=== PATIENT | female | born 1995 | race Caucasian/White ===

== ENCOUNTER 2016-10-07 21:05 | Emergency (ER) | payer OTHER ==
--- NOTE | 2016-10-07 22:51 | RAD ---
INDICATION: Lump on proximal anteromedial tibia. TECHNIQUE: 2 views of the right lower leg were obtained. FINDINGS: The bones are in normal alignment. No significant focal osseous abnormality or fracture is seen. No soft tissue calcifications are seen. IMPRESSION: Negative exam.
[2016-10-07] MEDS ORDERED: Ketorolac INJ* 60 MG/2 ML VIAL IM ONE (23:06)
--- NOTE | 2016-10-08 00:33 | UC ---
Lower Extremity/Ankle HPI - HPI Summary HPI Summary: OVER LAST WEEK HAS noticed very small bump on front of right leg. tender to touch. no redenss no fever. no trauma. NO DISCOLORATION TO AREA. NO INSECT BITES. NO OTHER LESIONS ANYWHERE ELSE ON BODY. - History of Current Complaint Chief Complaint: EDExtremityLower Stated Complaint: RIGHT LEG PAIN//POSS INFECTION Time Seen by Provider: 10/07/16 21:28 Hx Obtained From: Patient Onset/Duration: Gradual Onset, Lasting Days, Still Present Severity Initially: Mild Severity Currently: Mild Pain Intensity: 9 Aggravating Factor(s): Standing, Ambulation Alleviating Factor(s): Nothing - Risk Factors Gout Risk Factors: Negative DVT Risk Factors: Negative Septic Arthritis Risk Factor: Negative - Allergies/Home Medications Allergies/Adverse Reactions: Allergies Allergy/AdvReac Type Severity Reaction Status Date / Time Amoxicillin Allergy n/v Verified 03/14/16 23:07 Erythromycin Allergy n/v Verified 03/14/16 23:07 Latex Allergy Rash Verified 03/14/16 23:07 Penicillins Allergy n/v Verified 03/14/16 23:07 Sulfa Antibiotics Allergy n/v Verified 03/14/16 23:07 PMH/Surg Hx/FS Hx/Imm Hx Previously Healthy: Yes Respiratory History Of: Reports: Asthma Psychological History Of: Reports: Depression, Bipolar Disorder - Family History Known Family History: Negative: Cardiac Disease - Social History Occupation: Unemployed Lives: With Family Alcohol Use: None Alcohol Amount: none that pt reports Substance Use Type: None Substance Use Comment - Amount & Last Used: none that pt reports, pt tox negative for substances Smoking Status (MU): Never Smoked Tobacco Have You Smoked in the Last Year: No - Immunization History Most Recent Influenza Vaccination: unk Most Recent Tetanus Shot: unk Most Recent Pneumonia Vaccination: n/a Review of Systems Constitutional: Negative Skin: Other - SMALL 0.3 X 0.3 CM PALPABLE LESION UNDER SKIN OF ANTERIOR TIBIA. Eyes: Negative ENT: Negative Respiratory: Negative Cardiovascular: Negative Gastrointestinal: Negative Genitourinary: Negative Motor: Negative Neurovascular: Negative Musculoskeletal: Arthralgia - ANTERIOR LEG AT SITE OF BUMP Neurological: Negative Psychological: Negative All Other Systems Reviewed And Are Negative: Yes Physical Exam Triage Information Reviewed: Yes Appearance: Well-Appearing, No Pain Distress - PATIENT IN NO PAIN DISTRESS, ACTIVELY TEXTING AND SMILING; NO EXQUISTE TENDERNESS WHEN PALPATING LESION., Well-Nourished Vital Signs: Initial Vital Signs Temp 99.0 F 10/07/16 21:15 Pulse 86 10/07/16 21:15 Resp 16 10/07/16 21:15 BP 121/69 10/07/16 21:15 Pulse Ox 100 10/07/16 21:15 Vital Signs Reviewed: Yes Eye Exam: Normal Eyes: Positive: Conjunctiva Clear ENT Exam: Normal ENT: Positive: Normal ENT inspection, Hearing grossly normal, Pharynx normal, TMs normal Dental Exam: Normal Neck exam: Normal Neck: Positive: Supple, Nontender, No Lymphadenopathy Respiratory Exam: Normal Respiratory: Positive: Chest non-tender, Lungs clear, Normal breath sounds Cardiovascular Exam: Normal Cardiovascular: Positive: RRR, No Murmur, Pulses Normal Abdominal Exam: Normal Abdomen Description: Positive: Nontender, No Organomegaly Musculoskeletal Exam: Normal Musculoskeletal: Positive: Strength Intact, ROM Intact Neurological Exam: Normal Psychological Exam: Normal Psychological: Positive: Normal Response To Family Skin: Positive: Other - SMALL RAISES 0.3 CM X 0.3 CM PAPULAR LESION ON ANTERIOR RIGHT LEG. NO DISCOLORATION BORDERS PALPABLY DEFINED Diagnostics - Laboratory Diagnostic Studies Completed/Ordered: XRAY RIGHT LOWER LEG : NO FRACTURES OR FOREIGN BODIES VISUALIZED Lower Extremity Course/Dx - Differential Dx/Diagnosis Provider Diagnoses: RIGHT LEG ANTERIOR TIBIA SOFT TISSUE CYST. Discharge - Discharge Plan Condition: Stable Disposition: HOME Patient Education Materials: Cyst (ED) Referrals: [facility] [Outside] Javier Manriquez MD [Primary Care Provider] - Additional Instructions: TAKE IBUPROFEN FOR DISCOMFORT AND USE WARM COMPRESSES. Images Front/Back of Body, Lg (Nelson): 1 - 0.3 CM X 0.3 CM LESION HERE4 ON ANTERIOR TIBIA
[2016-10-08 01:02] VITALS: BP 93/70
== END 2016-10-08 01:00 | disposition home or self-care (01) ==
LOC: ED 21:05
DX: L72.8 Other follicular cysts of the skin and subcutaneous tissue (principal); M79.604 Pain in right leg
CPT/HCPCS: 96372; 99282; J1885

== ENCOUNTER 2018-04-23 10:34 | Emergency (ER) | payer SELFPAY ==
[2018-04-23] MEDS ORDERED: Clindamycin CAP* 150 MG PO ONE (11:25)
[2018-04-23] MEDS ORDERED: predniSONE TAB* 20 MG PO ONE (11:25)
[2018-04-23] MEDS ORDERED: diPHENhydraMINE PO* 50 MG PO ONE (11:25)
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
[2018-04-23 12:43] VITALS: BP 114/78
== END 2018-04-23 12:42 | disposition home or self-care (01) ==
LOC: ED 10:34
DX: L27.0 Generalized skin eruption due to drugs and medicaments taken internally (principal); T36.8X5A Adverse effect of other systemic antibiotics, initial encounter; Y92.9 Unspecified place or not applicable; Z88.3 Allergy status to other anti-infective agents; Z88.2 Allergy status to sulfonamides; Z88.0 Allergy status to penicillin
CPT/HCPCS: 99282; A9270-GY; J7512

== ENCOUNTER 2018-06-04 10:26 | Emergency (ER) | payer SELFPAY ==
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
[2018-06-04] MEDS ORDERED: Naproxen TAB* 250 MG PO ONE (11:30)
--- NOTE | 2018-06-04 13:09 | RAD ---
INDICATION: Right wrist injury. TECHNIQUE: 4 views of the right wrist were obtained. FINDINGS: The bones are in normal alignment. No fracture is seen. Joint spaces appear maintained. IMPRESSION: NO EVIDENCE FOR FRACTURE. IF THE PATIENT'S SYMPTOMS PERSIST RECOMMEND FOLLOW-UP IMAGING.
--- NOTE | 2018-06-04 13:10 | RAD ---
INDICATION: Left hand injury. TECHNIQUE: 4 views of the left hand were obtained. FINDINGS: The bones are in normal alignment. No fracture is seen. Joint spaces appear maintained. IMPRESSION: NO EVIDENCE FOR FRACTURE.
[2018-06-04 14:35] VITALS: BP 119/58
== END 2018-06-04 14:33 | disposition home or self-care (01) ==
LOC: ED 10:26
DX: S63.501A Unspecified sprain of right wrist, initial encounter (principal); S63.92XA Sprain of unspecified part of left wrist and hand, initial encounter; M25.531 Pain in right wrist; W19.XXXA Unspecified fall, initial encounter; Y92.9 Unspecified place or not applicable; Z88.0 Allergy status to penicillin
CPT/HCPCS: 99281; A9270-GY

== ENCOUNTER → 2018-07-16 00:50 | Emergency (ER) | payer OTHER ==
[~2018-07-16 00:50] MED LIST: Ibuprofen TAB* 600 MG PO ONE
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
[2018-07-16 02:42] VITALS: BP 0/0
== END | disposition home or self-care (01) ==
LOC: ED 00:50
DX: S00.83XA Contusion of other part of head, initial encounter (principal); S09.90XA Unspecified injury of head, initial encounter; Y04.8XXA Assault by other bodily force, initial encounter; Y92.9 Unspecified place or not applicable; F32.9 Major depressive disorder, single episode, unspecified
CPT/HCPCS: 70450; 70486; 99282; A9270-GY

== ENCOUNTER 2018-08-10 00:48 | Inpatient (IN) | payer OTHER ==
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
[2018-08-10] MEDS ORDERED: LORazepam INJ* 2 MG/ML 1 ML VIAL IM ONE (00:53)
[2018-08-10] MEDS ORDERED: Haloperidol INJ IV/IM* 5 MG/ML AMP IM ONE (00:53)
[2018-08-10] MEDS ORDERED: LORazepam INJ* 2 MG/ML 1 ML VIAL ONE (00:55)
[2018-08-10] MEDS ORDERED: Haloperidol INJ IV/IM* 5 MG/ML AMP ONE (00:55)
[2018-08-10 03:12] LABS: ABS Basophils 0 10^3/ul (0-0.2); ABS Eosinophils 0 10^3/ul (0-0.6); ABS Lymphocytes 1.1 10^3/ul (1.0-4.8); ABS Monocytes 0.7 10^3/ul (0-0.8); ABS Nucleated RBC 0 10^3/ul; Eosinophil % 0.3 % (0-6); Hematocrit 43 % (35-47); Hemoglobin 14.2 g/dl (12.0-16.0); Lymphocyte % 14.3 % (25-47); Mean Corpuscular HGB Conc 33 g/dl (31-36); Mean Corpuscular Hemoglobin 29 pg (27-31); Mean Corpuscular Volume 86 fL (80-97); Nucleated Red Blood Cells % 0.1; Platelet Count 285 10^3/ul (150-450); Red Blood Count 4.97 10^6/ul (4.00-5.40); Red Cell Distribution Width 13 % (10.5-15); White Blood Count 7.9 10^3/ul (3.5-10.8)
[2018-08-10 03:29] LABS: EGFR Non-African American 80.7 (>60)
[2018-08-10] MEDS ORDERED: NS 0.9% 1000 ML* 2,000 ML IV ONE (04:29)
[2018-08-10 05:43] LABS: Urine Appearance Cloudy; Urine Blood 1+ (Negative); Urine Color Yellow; Urine Ketones Negative (Negative); Urine Protein Negative (Negative); Urine Red Blood Cell 1+(3-5/hpf) (Absent); Urine Specific Gravity 1.013 (1.010-1.030); Urine Urobilinogen Negative (Negative); Urine White Blood Cell 1+(6-10/hpf) (Absent)
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
[2018-08-10] MEDS ORDERED: NS 0.9% 1000 ML* 1,000 ML IV ONE (07:54)
[2018-08-10] MEDS ORDERED: Al Hydrox/Mg Hydrox/Simet LIQ* 30 ML UDC PO PRN (15:41)
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
[2018-08-10] MEDS ORDERED: Lithium Carbonate TAB* 300 MG PO SCH (21:00)
[2018-08-11] MEDS: Sertraline* 25 MG TAB PO SCH (10:45)
[2018-08-11] MEDS: Vitamin THERAPEUTIC TAB PO SCH (10:45)
--- NOTE | 2018-08-11 12:58 | PN ---
Subjective - Subjective Date of Service: 08/11/18 Service Type: 93297 Hosp care 15 min low complexity Subjective: Patient was seen by self, discussed with treatment team, chart was reviewed. Patient has been compliant with her medications, no reported side effects. Patient shows no improvement in her mood dysregulation, continues to be very labile, symptoms, crying intensely, not sleeping, anxious, and demanding discharge was not cooperative initially. Patient sleeping has been disturbed but still wants to be discharged and minimizing her symptoms and her suicidal gestures and self injurous behavior. Patient eating has been fair. Patient has been superficially cooperative with staff and is safe on all checks. Patient behavior has been in control and safe on all checks in the hospital. Patient mood was anxious and dysphoric with racing thoughts. Patient has been reporting no suicidal or homicidal ideation, but hopeless and worthless feelings with her situation with kids that were adopted. No psychotic symptoms of delusions or hallucinations. Objective - Appearance Appearance: Thin Framed Dysmorphic Features: Yes Grooming: Disheveled - Behavior Psychomotor Activities: Abnormal-Increased Exhibits Abnormal Movement: No - Attitude and Relatedness Attitude and Relatedness: Superficially Cooperative Eye Contact: Poor - Speech Quality: Unpressured Latencies: Normal Quantity: Terse - Mood Patient's Decription of Mood: "Irritable" - Affect Observed Affect: Labile Affect Consistent with: Dysphoria - Thought Process Patient's Thought Process: Goal Directed, Circumstantial Thought Content: No Passive Wish, No Suicidal Planning, No Homicidal Ideation, No Paranoid Ideation - Sensorium Experiencing Hallucinations: No, Sensorium is Clear Type of Hallucinations: Visual: No, Auditory: No, Command: No - Level of Consciousness Level of Consciousness: Agitated Orientation: Yes Intact, Yes Orientated to Time, Yes Orientated to Place, Yes Orientated to Person - Impulse Control Impulse Control: Poor - as per recent history - Insight and Judgement Insight and Judgement: Poor - Medication Management Medication Management Adherence: Yes Assessment - Assessment Merits Inpatient Hospitalization: For Immediate Safety, For Stabilization, For Discharge Planning Inpatient DSM-V Dx: F31.9 Clinical Impression: This 23-year-old female with history of mental illness since her childhood who never followed up with any mental health professional since her discharge from the adolescent side of this hospital in 2007 is rehospitalized in the context of an attempt to cut her throat with a kitchen knife. MHU: Problem List - Patient Problems (1) Bipolar disorder Current Visit: Yes Status: Acute Plan - Plan Treatment Plan: Name: BRIGID RO Birthdate: 1995 [id number] - Patient continues to be hospitalized due to recent self injuirous behavior, mood instability, anxiety and impulsivity. - Patient's medications were adjusted after informed consent with addition of Depakote ER at 750 mg at Bedtime, [place] was discontinued due to given history of overdose and limited reliability due to her given history of limited intellectual functioning. Patient to continue with Zoloft for depression and anxiety. - Patient will be monitored for improvement and side effects. Risk and benefits were discussed. - Patient was encouraged to continue his participation in the milieu, group and individual therapy. Medications: Current Medications Acetaminophen (Tylenol Tab*) 650 mg PO Q4H PRN PRN Reason: PAIN or TEMP > 101 F Al Hydrox/Mg Hydrox/Simethicone (Maalox Plus*) 30 ml PO Q4H PRN PRN Reason: INDIGESTION Divalproex Sodium (Depakote Er Tab(*)) 750 mg PO BEDTIME ADAL Multivitamins (Theragran Tab*) 1 tab PO DAILY ADAL Last Admin: 08/11/18 10:45 Dose: 1 tab Sertraline HCl (Zoloft*) 25 mg PO DAILY ADAL Last Admin: 08/11/18 10:45 Dose: 25 mg
[2018-08-11] MEDS: Divalproex ER TAB(*) 250 MG PO SCH (20:37)
[2018-08-11] MEDS: Acetaminophen TAB* 325 MG PO PRN (20:37)
[2018-08-12] MEDS: Acetaminophen TAB* 325 MG PO PRN ×2 (00:40→18:39)
[2018-08-12] MEDS: Sertraline* 25 MG TAB PO SCH (08:05)
[2018-08-12] MEDS: Vitamin THERAPEUTIC TAB PO SCH (08:05)
[2018-08-12] MEDS: Vitamins A & D OINT* 60 GM TUBE TOPICAL SCH ×3 (11:30→20:14)
--- NOTE | 2018-08-12 11:37 | PN ---
Subjective - Subjective Date of Service: 08/12/18 Service Type: [id number] Hosp care 15 min low complexity Subjective: Patient was seen by self, discussed with treatment team, chart was reviewed. Patient has been compliant with her medications, no reported side effects. Patient was requesting Clonazepam today but unable to verbalize reasoning. Patient otherwise noticing some improvement in her symptoms, less racing thoughts and worries, was able to communicate with her boyfriend about her distress due to loss of children 3 months ago in closed adoption. Patient felt that her boyfriend was supportive. But as per patient he will not be able to come to the hospital for a meeting due to his work. Patient showed some improvement in her mood dysregulation, some what less labile, less hyperactive , less crying spell, slept somewhat better last night, less anxious, still preoccupied with her discharge. patient was regretful about her self injurious behaviour but is adamant that she was not going to kill her self. Patient wanted an ointment to help with healing scars on her neck. Patient eating has been fair. Patient has been superficially cooperative with staff and is safe on all checks. Patient behavior has been in control. Patient has been reporting no suicidal or homicidal ideation, and states that she need to comply with her outpatient treatment upon discharge with therapy and psychiatrist to be stable. No psychotic symptoms of delusions or hallucinations. Objective - Appearance Appearance: Healthy Appearing Dysmorphic Features: Yes Hygiene: Normal Grooming: Disheveled - Behavior Psychomotor Activities: Abnormal-Increased - but improved Exhibits Abnormal Movement: Yes - Attitude and Relatedness Attitude and Relatedness: Superficially Cooperative Eye Contact: Fair - Speech Quality: Unpressured Latencies: Normal Quantity: Appropriate - Mood Patient's Decription of Mood: "better" - Affect Observed Affect: Labile - less Affect Consistent with: Dysphoria - Thought Process Patient's Thought Process: Goal Directed, Circumstantial Thought Content: No Passive Wish, No Suicidal Planning, No Homicidal Ideation, No Paranoid Ideation - Sensorium Experiencing Hallucinations: No, Sensorium is Clear Type of Hallucinations: Visual: No, Auditory: No, Command: No - Level of Consciousness Level of Consciousness: Alert Orientation: Yes Intact, Yes Orientated to Time, Yes Orientated to Place, Yes Orientated to Person - Impulse Control Impulse Control: Poor - as per recent history but improving in the hospital - Insight and Judgement Insight and Judgement: Poor - but improving - Group Participation Particating in Group Activities: Yes - Medication Management Medication Management Adherence: Yes Assessment - Assessment Merits Inpatient Hospitalization: For Immediate Safety, For Stabilization, For Discharge Planning Inpatient DSM-V Dx: F31.9 Clinical Impression: This 23-year-old female with history of mental illness since her childhood who never followed up with any mental health professional since her discharge from the adolescent side of this hospital in 2007 is rehospitalized in the context of an attempt to cut her throat with a kitchen knife. MHU: Problem List - Patient Problems (1) Bipolar disorder Current Visit: Yes Status: Acute Plan - Plan Treatment Plan: Name: BRIGID RO Birthdate: 1995 [id number] - Patient continues to be hospitalized due to recent self injuirous behavior, mood instability, anxiety and impulsivity. - Patient's medications were continued with Depakote ER at 750 mg at Bedtime and Zoloft for depression and anxiety. Will obtain Depakote level on , around noon time. - Patient was provided vitamin A & D ointment for healing scars on neck. - Patient will be monitored for improvement and side effects. Risk and benefits were discussed. - Patient was encouraged to continue his participation in the milieu, group and individual therapy. Medications: Current Medications Acetaminophen (Tylenol Tab*) 650 mg PO Q4H PRN PRN Reason: PAIN or TEMP > 101 F Last Admin: 08/12/18 00:40 Dose: 650 mg Al Hydrox/Mg Hydrox/Simethicone (Maalox Plus*) 30 ml PO Q4H PRN PRN Reason: INDIGESTION Divalproex Sodium (Depakote Er Tab(*)) 750 mg PO BEDTIME [facility] Last Admin: 08/11/18 20:37 Dose: 750 mg Multivitamins (Theragran Tab*) 1 tab PO DAILY [facility] Last Admin: 08/12/18 08:05 Dose: 1 tab Sertraline HCl (Zoloft*) 25 mg PO DAILY [facility] Last Admin: 08/12/18 08:05 Dose: 25 mg Vitamin A/Vitamin D (Vitamin A & D Oint*) 1 applic TOPICAL TID [facility]
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
[2018-08-12] MEDS: Divalproex ER TAB(*) 250 MG PO SCH (20:44)
[2018-08-13] MEDS: Acetaminophen TAB* 325 MG PO PRN ×3 (04:20→21:30)
[2018-08-13] MEDS: Sertraline* 25 MG TAB PO SCH (08:36)
[2018-08-13] MEDS: Vitamin THERAPEUTIC TAB PO SCH (08:36)
[2018-08-13] MEDS: Vitamins A & D OINT* 60 GM TUBE TOPICAL SCH ×3 (08:36→21:18)
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
--- NOTE | 2018-08-13 15:50 | PN ---
MHU: Group Therapy Note - Service Type Service Type: [id number] Group Psychotherapy - Group Participation Patient Participating in Group: Yes Level of Group Participation: Spontaneously Participate Relatedness to Group: Other - Kisha participated throughout the group, usually by jumping into the conversation. Nevertheless, she was on topic and pleasant with relevant questions.
[2018-08-13] MEDS: Divalproex ER TAB(*) 250 MG PO SCH (21:25)
[2018-08-14] MEDS: Acetaminophen TAB* 325 MG PO PRN ×2 (02:50→23:30)
[2018-08-14] MEDS: Vitamin THERAPEUTIC TAB PO SCH (08:15)
[2018-08-14] MEDS: Sertraline* 25 MG TAB PO SCH (08:16)
[2018-08-14] MEDS: Vitamins A & D OINT* 60 GM TUBE TOPICAL SCH ×3 (08:16→23:53)
--- NOTE | 2018-08-14 11:23 | PN ---
MHU: Group Therapy Note - Service Type Service Type: [id number] Group Psychotherapy - Cognitive Behavioral Group Therapy ( CBT):Patient was attentive and participatory in CBT programming this morning, and remained in good behavioral control. Patient expressed positive insights regarding relevant treatment interventions and goals.
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
[2018-08-14] MEDS: Divalproex ER TAB(*) 250 MG PO SCH (21:08)
[2018-08-15] MEDS: Acetaminophen TAB* 325 MG PO PRN (04:24)
[2018-08-15 08:31] VITALS: BP 117/61
[2018-08-15] MEDS: Sertraline* 25 MG TAB PO SCH (09:06)
[2018-08-15] MEDS: Vitamin THERAPEUTIC TAB PO SCH (09:06)
[2018-08-15] MEDS: Vitamins A & D OINT* 60 GM TUBE TOPICAL SCH (09:07)
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
== END 2018-08-15 11:20 | disposition home or self-care (01) | DRG 753 ==
LOC: ED 00:48 → BSU 15:03
PROVIDERS: ADMIT Psychiatry & Neurology Psychiatry; ATTEND Psychiatry & Neurology Psychiatry
PROC: GZHZZZZ Group Psychotherapy (ICD-10-PCS; principal; 2018-08-12)
DX: F31.9 Bipolar disorder, unspecified (principal); F43.23 Adjustment disorder with mixed anxiety and depressed mood; J45.909 Unspecified asthma, uncomplicated; F43.10 Post-traumatic stress disorder, unspecified; F90.9 Attention-deficit hyperactivity disorder, unspecified type; F41.9 Anxiety disorder, unspecified; F81.9 Developmental disorder of scholastic skills, unspecified; Z62.810 Personal history of physical and sexual abuse in childhood; S11.91XA Laceration without foreign body of unspecified part of neck, initial encounter; X78.1XXA Intentional self-harm by knife, initial encounter; Y92.009 Unspecified place in unspecified non-institutional (private) residence as the place of occurrence of the external cause; Z88.0 Allergy status to penicillin; Z59.0 Homelessness; Z88.2 Allergy status to sulfonamides; Z91.5 Personal history of self-harm; Z88.1 Allergy status to other antibiotic agents; Z91.040 Latex allergy status
CPT/HCPCS: 36415; 80053; 80061; 80164; 80307; 80320; 80329; 81003; 81015; 83036; 84443; 84702; 85025; 87086; 90853; 93005; 99222; 99231; 99238; 99284; A9270-GY; G0480; J1630; J2060

== ENCOUNTER 2018-10-13 23:21 | Inpatient (IN) | payer OTHER ==
[2018-10-13] MEDS ORDERED: Haloperidol INJ IV/IM* 5 MG/ML AMP IM ONE (23:24)
[2018-10-13] MEDS ORDERED: LORazepam INJ* 2 MG/ML 1 ML VIAL IM ONE (23:25)
[2018-10-13] MEDS ORDERED: LORazepam INJ* 2 MG/ML 1 ML VIAL ONE (23:40)
[2018-10-13] MEDS ORDERED: Haloperidol INJ IV/IM* 5 MG/ML AMP ONE (23:40)
[2018-10-14 00:08] LABS: Urine Appearance Clear; Urine Bilirubin Negative (Negative); Urine Blood Negative (Negative); Urine Color Colorless; Urine Glucose Negative (Negative); Urine Ketones Negative (Negative); Urine Nitrite Negative (Negative); Urine Protein Negative (Negative); Urine Specific Gravity 1.002 (1.010-1.030); Urine Urobilinogen Negative (Negative)
[2018-10-14 00:27] LABS: Barbiturates Urine Screen None Detected (None Detect); Benzodiazepine Urine Screen None Detected (None Detect); Urine Cannabinoids Screen None Detected (None Detect)
[2018-10-14 01:15] LABS: ABS Basophils 0.1 10^3/ul (0-0.2); ABS Eosinophils 0.3 10^3/ul (0-0.6); ABS Lymphocytes 1.9 10^3/ul (1.0-4.8); ABS Monocytes 0.5 10^3/ul (0-0.8); ABS Nucleated RBC 0 10^3/ul; Hematocrit 41 % (35-47); Hemoglobin 13.6 g/dl (12.0-16.0); Lymphocyte % 32.7 %; Mean Corpuscular HGB Conc 33 g/dl (31-36); Mean Corpuscular Hemoglobin 29 pg (27-31); Mean Corpuscular Volume 87 fL (80-97); Mean Platelet Volume 7.2 fL (7.4-10.4); Nucleated Red Blood Cells % 0.1; Platelet Count 292 10^3/ul (150-450); Red Blood Count 4.74 10^6/ul (4.00-5.40); Red Cell Distribution Width 15 % (10.5-15); White Blood Count 5.7 10^3/ul (3.5-10.8)
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
[2018-10-14 01:32] LABS: ALT 105 U/L (7-52); AST 56 U/L (13-39); Albumin 4.5 g/dL (3.2-5.2); Albumin/Globulin Ratio 1.5 (1-3); Alkaline Phosphatase 94 U/L (34-104); Anion Gap 11 mmol/L (2-11); BUN/Creatinine Ratio 14.8 (8-20); Blood Urea Nitrogen 12 mg/dL (6-24); CO2 Carbon Dioxide 21 mmol/L (22-32); Calcium 9.3 mg/dL (8.6-10.3); Chloride 109 mmol/L (101-111); EGFR Non-African American 87.6 (>60); Glucose 93 mg/dL (70-100); Potassium 3.6 mmol/L (3.5-5.0); Sodium 141 mmol/L (135-145); Total Protein 7.5 g/dL (6.4-8.9)
[2018-10-14 02:23] LABS: Acetaminophen < 15 mcg/mL; Alcohol 242 mg/dL (<10); Salicylate < 2.50 mg/dL (<30)
[2018-10-14 02:39] LABS: TSH (Thyroid Stimulating Horm) 0.86 mcIU/mL (0.34-5.60)
[2018-10-14 04:46] LABS: Anion Gap 11 mmol/L (2-11); BUN/Creatinine Ratio 11.2 (8-20); Blood Urea Nitrogen 10 mg/dL (6-24); CO2 Carbon Dioxide 23 mmol/L (22-32); Calcium 9.1 mg/dL (8.6-10.3); Chloride 110 mmol/L (101-111); EGFR African American 95.1 (>60); EGFR Non-African American 78.6 (>60); Glucose 89 mg/dL (70-100); Potassium 3.9 mmol/L (3.5-5.0); Sodium 144 mmol/L (135-145)
[2018-10-14] MEDS ORDERED: Al Hydrox/Mg Hydrox/Simet LIQ* 30 ML UDC PO PRN (06:05)
[2018-10-14] MEDS ORDERED: NS 0.9% 1000 ML** 1,000 ML IV SCH (06:15)
[2018-10-14 06:27] LABS: HCG Pregnancy < 0.60 mIU/mL
[2018-10-14 07:52] LABS: Albumin 4.3 g/dL (3.2-5.2); Albumin/Globulin Ratio 1.3 (1-3); BUN/Creatinine Ratio 9.7 (8-20); EGFR African American 90.4 (>60); EGFR Non-African American 74.7 (>60); Globulin 3.2 g/dL (2-4); Potassium 3.8 mmol/L (3.5-5.0); Total Bilirubin 0.2 mg/dL (0.2-1.0); Total Protein 7.5 g/dL (6.4-8.9)
--- NOTE | 2018-10-14 10:55 | HP ---
HISTORY AND PHYSICAL: DATE OF ADMISSION: 10/14/18 TIME OF EVALUATION/SERVICE: 0600 PRIMARY CARE PHYSICIAN: The patient does not have primary care physician. CHIEF COMPLAINT: Altered mental status and agitation. HISTORY OF PRESENT ILLNESS: This is a 23-year-old female with the past medical history of mental a [facility] illness with suicide attempt and psychiatric condition, hospitalizations in the past, who present ed to the emergency room after being found by the police agitated and disoriented. The patient is so mnolent and unable to interact. According the ER staff notes, the patient expressed suicidal ideatio n, was drinking alcohol and took 12 tablets of Depakote. Poison Control was was contacted due to a r ise in her Depakote level. After 3 hours, it was recommended that she be admitted for further evalua tion and observation. The patient was admitted back in July 2018 to the rehab health unit for davidson icidal ideation and she was sent home on Depakote and Zoloft. [place] to the ER[place] although because the patient is not able to engage, it is unclear, her history. As men tioned, unable to obtain a review of system. PAST MEDICAL HISTORY: 1. History of hospitalizations and behavioral health unit. 2. History of suicide attempt. 3. History of mental health illness. 4. Question intellectual developmental disability. MEDICATIONS: From July 2018 from her psych inpatient hospitalization: 1. The patient was started on Depakote ER 750 mg p.o. at bedtime. 2. Zoloft 25 mg daily. ALLERGIES: AMOXICILLIN, ERYTHROMYCIN, LATEX, PENICILLIN, and SULFA. FAMILY HISTORY: Unable to obtain due to the patient's altered mentals status. SOCIAL HISTORY: It appears the patient has 2 children and was staying with her boyfriend back in [facility]. Her alcohol level was elevated, it is unclear. Her remaining tox screen was negative. REVIEW OF SYSTEMS: Unable to obtain due the patient's uttered mental status. PHYSICAL EXAMINATION GENERAL: No acute distress. The patient is sleeping, does awake to tactile stimuli, but does not ve rbally interact. VITAL SIGNS: Temp 97.7, pulse rate 90, respiratory rate 22, oxygen saturation 99% on room air, blood pressure 123/85. HEENT: Head normocephalic. Pupils are dilated and reactive. Conjunctiva mildly injected. Mucous m embranes are moist. NECK: Supple. RESPIRATORY: Diminished breath sounds. No wheezes, rhonchi, or rales. CARDIAC: Tachycardic. Soft systolic murmur heard throughout . ABDOMEN: Soft, nontender, nondistended. EXTREMITIES: No clubbing, cyanosis, or edema, +1 DPs. NEUROLOGIC: As mentioned, the patient awakes to tactile stimulation, moving all extremities. No jennifer ss focal neurologic deficits. DIAGNOSTIC STUDIES/LAB DATA: White count 5.7, hemoglobin 13.6, hematocrit 41, platelets 292. Sodiu m 144, potassium 3.9, chloride 110, bicarb 23, BUN 10, creatinine 0.89. TSH 0.86. Salicylate is negative. Acetaminophen is negative. Urine tox screen is negative. Alcohol level is 2 42. Valproic acid level is 206 and then went up to 269 three hours later. EKG shows normal sinus rh ythm with a QTc of 421. ASSESSMENT AND PLAN: This is a 23-year-old female with the past medical history of mental health dis order, presents to the emergency room with agitation and somnolence, found to have an elevated valpro ic acid level and alcohol level. 1. Somnolence. Assessment: The patient's history of suicide attempt in the past with mental health illness, this is concerning for another suicide attempt with her elevated valproic acid, also with a lcohol on board. The patient is somnolent, but does awake to tactile stimuli. Other metabolic deran gement was an elevated ammonia level at 115. Poison Control was contacted and they recommended repea ting an ammonia level this morning at 7:00 as well as a CMP and another valproic acid level, which we will do so. We will start her on fluids, consult Social Work, Psych one-to-one, and repeat an EKG t his morning. We also ordered serum hCG. 2. FEN: N.p.o. for now until the patient is more safely awake. We will have a bedside swallow orde red when she is awake. 3. DVT prophylaxis. The patient scores 0. Placed her on SCDs. 4. Code status: Full code. PATIENT TIME: Greater than 30 minutes were spent doing the history and physical, more than half the time was spent in direct patient contact. [id number]/[facility] #: [id number]
--- NOTE | 2018-10-14 14:16 | PN ---
Subjective Date of Service: 10/14/18 Interval History: Patient poorly responsive. She did state in the hearing of other staff "I want to ". Objective Active Medications: Acetaminophen (Tylenol Tab*) 650 mg PO Q4H PRN PRN Reason: PAIN Al Hydrox/Mg Hydrox/Simethicone (Maalox Plus*) 30 ml PO Q6H PRN PRN Reason: INDIGESTION Folic Acid (Folvite Tab*) 1 mg PO DAILY [facility] Potassium Chloride/Dextrose (D5w 1/2 Ns Kcl 20 Meq 1000 Ml*) 1,000 mls @ 125 mls/hr IV PER RATE [facility] Lorazepam (Ativan Tab(*)) 0 - 6 mg PO .PER [facility] PROTOCOL ADAL; Protocol Multivitamins/Minerals (Theragran/Minerals Tab*) 1 tab PO DAILY [facility] Nicotine (Nicotine Inhaler*) 10 mg INH Q2H PRN PRN Reason: CRAVING Ondansetron HCl (Zofran Inj*) 4 mg IV Q4H PRN PRN Reason: NAUSEA/VOMITING Thiamine HCl (Vitamin B-1 Tab*) 100 mg PO DAILY [facility] Vital Signs - 8 hr 10/14/18 10/14/18 10/14/18 06:30 07:00 07:01 Temperature Pulse Rate 110 104 103 Respiratory 23 20 21 Rate Blood Pressure 131/71 113/67 (mmHg) O2 Sat by Pulse 100 100 100 Oximetry 10/14/18 10/14/18 10/14/18 07:30 08:00 08:01 Temperature Pulse Rate 101 109 113 Respiratory 24 25 Rate Blood Pressure 120/68 112/59 (mmHg) O2 Sat by Pulse 100 100 100 Oximetry 10/14/18 10/14/18 10/14/18 08:30 09:00 09:01 Temperature Pulse Rate 117 108 112 Respiratory 22 20 24 Rate Blood Pressure 111/74 119/72 (mmHg) O2 Sat by Pulse 100 100 100 Oximetry 10/14/18 10/14/18 10/14/18 09:30 10:00 10:01 Temperature Pulse Rate 132 124 123 Respiratory 24 20 22 Rate Blood Pressure 104/59 102/72 (mmHg) O2 Sat by Pulse 99 100 100 Oximetry 10/14/18 10/14/18 10/14/18 10:30 10:43 12:32 Temperature 98.8 F 98.8 F Pulse Rate 131 112 Respiratory 28 28 Rate Blood Pressure 112/70 109/70 (mmHg) O2 Sat by Pulse 99 99 Oximetry 10/14/18 13:14 Temperature 99.4 F Pulse Rate 128 Respiratory 20 Rate Blood Pressure 121/52 (mmHg) O2 Sat by Pulse 100 Oximetry Oxygen Devices in Use Now: None Appearance: Obtunded. Resp quiet. Extremities: No Edema, No Clubbing, Cyanosis, - Skin: No Rash or Ulcers, No Nodules or Sclerosis, - Result Diagrams: 10/14/18 01:04 10/14/18 07:27 Additional Lab and Data: Lab Results 10/13/18 10/13/18 10/14/18 Range/Units 23:58 23:58 01:04 WBC 5.7 (3.5-10.8) 10^3/ul RBC 4.74 (4.00-5.40) 10^6/ul Hgb 13.6 (12.0-16.0) g/dl Hct 41 (35-47) % MCV 87 (80-97) fL MCH 29 (27-31) pg MCHC 33 (31-36) g/dl RDW 15 (10.5-15) % Plt Count 292 (150-450) 10^3/ul MPV 7.2 L (7.4-10.4) fL Neut % (Auto) 52.9 % Lymph % (Auto) 32.7 % [place] % (Auto) 8.3 % Eos % (Auto) 5.0 % Baso % (Auto) 1.1 % Absolute Neuts (auto) 3.0 (1.5-7.7) 10^3/ul Absolute Lymphs (auto) 1.9 (1.0-4.8) 10^3/ul Absolute Monos (auto) 0.5 (0-0.8) 10^3/ul Absolute Eos (auto) 0.3 (0-0.6) 10^3/ul Absolute Basos (auto) 0.1 (0-0.2) 10^3/ul Absolute Nucleated RBC 0 10^3/ul Nucleated RBC % 0.1 Urine Color Colorless Urine Appearance Clear Urine pH 6.0 (5-9) Ur Specific [place] 1.002 L (1.010-1.030) Urine Protein Negative (Negative) Urine Ketones Negative (Negative) Urine Blood Negative (Negative) Urine Nitrate Negative (Negative) Urine Bilirubin Negative (Negative) Urine Urobilinogen Negative (Negative) Ur Leukocyte Esterase Negative (Negative) Urine Glucose Negative (Negative) Urine Opiates Screen None detected (None Detect) Ur Barbiturates Screen None detected (None Detect) Ur Phencyclidine Scrn None detected (None Detect) Ur Amphetamines Screen None detected (None Detect) U Benzodiazepines Scrn None detected (None Detect) Urine Cocaine Screen None detected (None Detect) U Cannabinoids Screen None detected (None Detect) Assess/Plan/Problems-Billing Assessment: - Patient Problems (1) Drug overdose Current Visit: Yes Status: Acute Code(s): T50.901A - POISONING BY UNSP DRUG/ MEDS/BIOL SUBST, ACCIDENTAL, INIT SNOMED Code(s): 43620515 Comment: Took valproic acid ER. Alcohol level also high. Repeat valproic acid level 200 hrs 10/14. Continue IV fluids. Psych consult when patient able to participate in interview. (2) Alcohol abuse Current Visit: Yes Status: Acute Code(s): F10.10 - ALCOHOL ABUSE, UNCOMPLICATED SNOMED Code(s): 73067542 Comment: High BA also in 08/03.
[2018-10-14] MEDS ORDERED: levOCARNitine* 6 GM in NS 0.9% 1000 ML** 1,000 ML IV ONE (14:26)
[2018-10-14] MEDS: Multivitamins/Minerals TAB PO SCH (15:03)
[2018-10-14] MEDS: Folic Acid TAB* 1 MG PO SCH (15:03)
[2018-10-14] MEDS: Thiamine TAB* 100 MG TAB PO SCH (15:04)
[2018-10-14] MEDS: D5W 1/2 NS KCl 20 Meq 1000 ML* 1,000 ML IV SCH (16:33)
[2018-10-14] MEDS: LORazepam TAB(*) 1 MG PO SCH (16:51)
[2018-10-14] MEDS: Ondansetron INJ* 2 MG/ML VIAL IV PRN (16:51)
[2018-10-14] MEDS: NS 0.9% IV SCH ×2 (19:21→23:43)
[2018-10-14] MEDS: LEVOCARNITINE IV SCH ×2 (19:21→23:43)
[2018-10-14 21:32] LABS: EGFR African American 83.1 (>60); EGFR Non-African American 68.7 (>60); Potassium 3.6 mmol/L (3.5-5.0)
[2018-10-15] MEDS: NS 0.9% IV SCH ×6 (03:35→23:34)
[2018-10-15] MEDS: LEVOCARNITINE IV SCH ×6 (03:35→23:34)
[2018-10-15] MEDS: Ondansetron INJ* 2 MG/ML VIAL IV PRN (04:18)
[2018-10-15 06:16] LABS: ABS Basophils 0 10^3/ul (0-0.2); ABS Eosinophils 0 10^3/ul (0-0.6); ABS Lymphocytes 0.9 10^3/ul (1.0-4.8); ABS Monocytes 0.4 10^3/ul (0-0.8); ABS Neutrophils 2.8 10^3/ul (1.5-7.7); ABS Nucleated RBC 0 10^3/ul; Eosinophil % 0.2 %; Hematocrit 37 % (35-47); Hemoglobin 12.3 g/dl (12.0-16.0); Lymphocyte % 21.5 %; Mean Corpuscular HGB Conc 34 g/dl (31-36); Mean Corpuscular Hemoglobin 29 pg (27-31); Mean Corpuscular Volume 87 fL (80-97); Nucleated Red Blood Cells % 0; Platelet Count 251 10^3/ul (150-450); Red Cell Distribution Width 15 % (10.5-15); White Blood Count 4.1 10^3/ul (3.5-10.8)
[2018-10-15 06:25] LABS: Albumin 3.5 g/dL (3.2-5.2); Albumin/Globulin Ratio 1.3 (1-3); BUN/Creatinine Ratio 13.6 (8-20); EGFR African American 96.4 (>60); EGFR Non-African American 79.6 (>60); Globulin 2.6 g/dL (2-4); Potassium 3.6 mmol/L (3.5-5.0); Total Bilirubin 0.4 mg/dL (0.2-1.0); Total Protein 6.1 g/dL (6.4-8.9)
[2018-10-15] MEDS: Thiamine TAB* 100 MG TAB PO SCH (08:09)
[2018-10-15] MEDS: Folic Acid TAB* 1 MG PO SCH (08:09)
[2018-10-15] MEDS: Multivitamins/Minerals TAB PO SCH (08:09)
--- NOTE | 2018-10-15 08:37 | PN ---
Subjective Date of Service: 10/15/18 Interval History: HD #2 for this 23 yo F with PMH polysubstance abuse who presented with depakote overdose and EtOH intoxication Overnight, no acute events, VSS BP 115-98/48-54, afebrile, 88, RR 16 RA 100%. Voiding freely, labs Ammonia 93, improving, Depakote level 137 (admission >300) This morning, still with wide based gait but mentation improving, can tell me why she is in the hospital has a friend visiting, tearful at times, would like to advance diet. Complaint of being in the hospital but limited capacity on my eval to understand the risks of leaving AMA, psychiatry to see as they have a bed for her in [facility], would like to see her tolerating diet and ambulating, perhaps tomorrow. Denies CP, SOB, GI, , MSK complaints +depression and anxiety Objective Active Medications: Acetaminophen (Tylenol Tab*) 650 mg PO Q4H PRN PRN Reason: PAIN Al Hydrox/Mg Hydrox/Simethicone (Maalox Plus*) 30 ml PO Q6H PRN PRN Reason: INDIGESTION Folic Acid (Folvite Tab*) 1 mg PO DAILY [facility] Last Admin: 10/15/18 08:09 Dose: 1 mg Potassium Chloride/Dextrose (D5w 1/2 Ns Kcl 20 Meq 1000 Ml*) 1,000 mls @ 125 mls/hr IV PER RATE [facility] Last Admin: 10/14/18 16:33 Dose: 125 mls/hr Levocarnitine 1 gm/ Sodium (Chloride) 255 mls @ 510 mls/hr IV Q4H [facility] Last Admin: 10/15/18 07:35 Dose: 510 mls/hr Lorazepam (Ativan Tab(*)) 0 - 6 mg PO .PER [facility] PROTOCOL [facility]; Protocol Last Admin: 10/14/18 16:51 Dose: 4 mg Multivitamins/Minerals (Theragran/Minerals Tab*) 1 tab PO DAILY [facility] Last Admin: 10/15/18 08:09 Dose: 1 tab Nicotine (Nicotine Inhaler*) 10 mg INH Q2H PRN PRN Reason: CRAVING Ondansetron HCl (Zofran Inj*) 4 mg IV Q4H PRN PRN Reason: NAUSEA/VOMITING Last Admin: 10/15/18 04:18 Dose: 4 mg Thiamine HCl (Vitamin B-1 Tab*) 100 mg PO DAILY [facility] Last Admin: 10/15/18 08:09 Dose: 100 mg Vital Signs - 8 hr 10/15/18 10/15/18 10/15/18 04:03 07:36 07:40 Temperature 98.4 F 97.9 F Pulse Rate 88 82 Respiratory 24 24 16 Rate Blood Pressure 98/48 103/48 (mmHg) O2 Sat by Pulse 99 100 Oximetry Oxygen Devices in Use Now: None Appearance: Tearful woman in NAD Eyes: No Scleral Icterus, PERRLA Ears/Nose/Mouth/Throat: NL Teeth, Lips, Gums, Mucous Membranes Moist Neck: NL Appearance and Movements; NL JVP Respiratory: Clear to Auscultation Cardiovascular: NL Sounds; No Murmurs; No JVD, RRR Abdominal: NL Sounds; No Tenderness; No Distention Lymphatic: No Cervical Adenopathy Extremities: No Edema Skin: No Rash or Ulcers Neurological: Alert and Oriented x 3, - - wide based gait Result Diagrams: 10/15/18 05:55 10/15/18 05:55 Additional Lab and Data: Assess/Plan/Problems-Billing Assessment: 23 yo F with H polysubstance abuse and mood d/o who presented with intentional depakote overdose and EtOH intoxication, awaiting medical stability for xfer to [facility] - Patient Problems (1) Drug overdose Current Visit: Yes Status: Acute Code(s): T50.901A - POISONING BY UNSP DRUG/ MEDS/BIOL SUBST, ACCIDENTAL, INIT SNOMED Code(s): 37659039 Comment: Took valproic acid ER. Alcohol level also high. Repeat valproic acid level inmproving, trend. Continue IV fluids. May transfer to [facility] when tolerating diet and ambulating -Remain 1:1 (2) Alcohol abuse Current Visit: Yes Status: Acute Code(s): F10.10 - ALCOHOL ABUSE, UNCOMPLICATED SNOMED Code(s): 10050700 Comment: High BA also in . -On WAM (3) Bipolar disorder Current Visit: No Status: Acute Comment: Anticipate xfer to [facility] when medically stable Appreciate psych recs (4) DVT prophylaxis Current Visit: Yes Status: Acute Code(s): ILQ2140 - SNOMED Code(s): 917899131 Comment: Ambulate Status and Disposition: Xfer to [facility] likely tomorrow 10/16
[2018-10-15] MEDS: D5W 1/2 NS KCl 20 Meq 1000 ML* 1,000 ML IV SCH ×2 (09:10→22:09)
[2018-10-15] MEDS: LORazepam TAB(*) 1 MG PO SCH (16:50)
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
[2018-10-16] MEDS: NS 0.9% IV SCH ×2 (03:48→08:21)
[2018-10-16] MEDS: LEVOCARNITINE IV SCH ×2 (03:48→08:21)
[2018-10-16 06:13] LABS: ABS Basophils 0 10^3/ul (0-0.2); ABS Eosinophils 0 10^3/ul (0-0.6); ABS Lymphocytes 1.4 10^3/ul (1.0-4.8); ABS Monocytes 0.5 10^3/ul (0-0.8); ABS Neutrophils 1.9 10^3/ul (1.5-7.7); ABS Nucleated RBC 0 10^3/ul; Eosinophil % 0.5 %; Hematocrit 36 % (35-47); Hemoglobin 12.2 g/dl (12.0-16.0); Mean Corpuscular HGB Conc 34 g/dl (31-36); Mean Corpuscular Hemoglobin 29 pg (27-31); Mean Corpuscular Volume 87 fL (80-97); Mean Platelet Volume 7.3 fL (7.4-10.4); Nucleated Red Blood Cells % 0.1; Platelet Count 192 10^3/ul (150-450); Red Blood Count 4.17 10^6/ul (4.00-5.40); Red Cell Distribution Width 14 % (10.5-15); White Blood Count 3.9 10^3/ul (3.5-10.8)
[2018-10-16 06:38] LABS: BUN/Creatinine Ratio 15.1 (8-20); Calcium 8.6 mg/dL (8.6-10.3); EGFR African American 119.5 (>60); EGFR Non-African American 98.8 (>60); Potassium 3.7 mmol/L (3.5-5.0)
[2018-10-16] MEDS: Thiamine TAB* 100 MG TAB PO SCH (08:21)
[2018-10-16] MEDS: Folic Acid TAB* 1 MG PO SCH (08:22)
[2018-10-16] MEDS: Multivitamins/Minerals TAB PO SCH (08:22)
[2018-10-16] MEDS ORDERED: Nicotine GUM* 2 MG PO PRN (13:33)
[2018-10-16] MEDS: LORazepam TAB(*) 1 MG PO SCH (13:38)
[2018-10-16] MEDS ORDERED: Mouth Piece, Nicotine* 1 EACH CARTRIDGE ONE (18:07)
[2018-10-16] MEDS: Nicotine Inhaler* 10 MG AMP INH PRN (18:08)
--- NOTE | 2018-10-16 20:19 | DS ---
DISCHARGE SUMMARY: DATE OF ADMISSION: DATE OF DISCHARGE: 10/16/18 HISTORY OF PRESENT ILLNESS/HOSPITAL COURSE: This 23-year-old woman was found by the police agitated and disoriented. At one point, she told staff that she took 12 tablets of Depakote. Based on her clinical course, I think she may have taken more than that. She was intoxicated as well with an alcohol level of over 200. Her ammonia level was elevated. The patient was given intravenous fluids and L-carnitine. Her Depakote level initially leyda, but after about 24 hours in the hospital started to decline. Her ammonia level declined to normal gradually. She was seen in consultation by Dr. Cortez. He recommended inpatient psychiatric treatment. The patient was transferred to the mental health unit. FINAL DIAGNOSES: 1. Suicide attempt. 2. Polysubstance abuse. [id number]/CPS #: [id number] JARRETT
[2018-10-16] MEDS: Divalproex ER TAB(*) 250 MG PO SCH (20:20)
[2018-10-17 08:17] LABS: Albumin 4.4 g/dL (3.2-5.2); Albumin/Globulin Ratio 1.4 (1-3); BUN/Creatinine Ratio 17.4 (8-20); Calcium 9.6 mg/dL (8.6-10.3); EGFR African American 98.9 (>60); EGFR Non-African American 81.8 (>60); Globulin 3.2 g/dL (2-4); HDL Cholesterol 46.2 mg/dL; Total Bilirubin 0.6 mg/dL (0.2-1.0); Total Protein 7.6 g/dL (6.4-8.9)
[2018-10-17] MEDS: Thiamine TAB* 100 MG TAB PO SCH (08:54)
[2018-10-17] MEDS: Multivitamins/Minerals TAB PO SCH (08:54)
[2018-10-17] MEDS: Folic Acid TAB* 1 MG PO SCH (08:54)
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
--- NOTE | 2018-10-17 13:39 | PN ---
[facility]: Group Therapy Note - Service Type Service Type: 04996 Group Psychotherapy - Cognitive Behavioral Group Therapy ( CBT):Patient presented in CBT programming as disorganized and disruptive in discussion and needed repeated redirection to attend to presented materials.
[2018-10-17] MEDS: Divalproex ER TAB(*) 250 MG PO SCH (20:45)
[2018-10-18] MEDS ORDERED: Mouth Piece, Nicotine* 1 EACH CARTRIDGE ONE (00:15)
[2018-10-18] MEDS: Nicotine Inhaler* 10 MG AMP INH PRN (00:18)
[2018-10-18] MEDS: Acetaminophen TAB* 325 MG PO PRN (00:21)
[2018-10-18] MEDS: Multivitamins/Minerals TAB PO SCH (09:15)
[2018-10-18] MEDS: Folic Acid TAB* 1 MG PO SCH (09:15)
[2018-10-18] MEDS: Thiamine TAB* 100 MG TAB PO SCH (09:15)
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
[2018-10-18] MEDS: Divalproex ER TAB(*) 250 MG PO SCH (22:26)
[2018-10-19] MEDS: Folic Acid TAB* 1 MG PO SCH (08:44)
[2018-10-19] MEDS: Multivitamins/Minerals TAB PO SCH (08:44)
[2018-10-19] MEDS: Thiamine TAB* 100 MG TAB PO SCH (08:44)
[2018-10-19] MEDS: Acetaminophen TAB* 325 MG PO PRN (18:41)
[2018-10-19] MEDS: Divalproex ER TAB(*) 250 MG PO SCH (22:37)
[2018-10-20] MEDS: Nicotine Inhaler* 10 MG AMP INH PRN (04:03)
[2018-10-20] MEDS: Folic Acid TAB* 1 MG PO SCH (08:50)
[2018-10-20] MEDS: Multivitamins/Minerals TAB PO SCH (08:50)
[2018-10-20] MEDS: Thiamine TAB* 100 MG TAB PO SCH (08:50)
[2018-10-20 10:38] VITALS: BP 113/65
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
[2018-10-20] MEDS ORDERED: Divalproex ER TAB(*) 250 MG PO SCH (21:00)
== END 2018-10-20 15:31 | disposition home or self-care (01) | DRG 753 ==
LOC: ED 23:21 → OBSVTOIN 10-14 13:13 → MEDTELE 10-14 13:13 → BSU 10-16 17:12
PROVIDERS: ADMIT Pediatrics; ATTEND Psychiatry & Neurology Psychiatry
DX: F31.4 Bipolar disorder, current episode depressed, severe, without psychotic features (principal); F10.10 Alcohol abuse, uncomplicated; Z72.0 Tobacco use; T14.91XD Suicide attempt, subsequent encounter; T42.6X2D Poisoning by other antiepileptic and sedative-hypnotic drugs, intentional self-harm, subsequent encounter; T51.0X2D Toxic effect of ethanol, intentional self-harm, subsequent encounter; Z79.899 Other long term (current) drug therapy; Z88.0 Allergy status to penicillin; Z88.2 Allergy status to sulfonamides; Z88.1 Allergy status to other antibiotic agents; Z91.040 Latex allergy status; T20.20XD Burn of second degree of head, face, and neck, unspecified site, subsequent encounter; X15.0XXD Contact with hot stove (kitchen), subsequent encounter
CPT/HCPCS: 36415; 80048; 80053; 80061; 80164; 80307; 80320; 80329; 81003; 82140; 83036; 84443; 84702; 85025; 90686; 93005; 99285; A9270-GY; G0480; J1630; J1955; J2060; J2405

== ENCOUNTER 2018-11-22 21:14 | Inpatient (IN) | payer OTHER ==
[2018-11-22] MEDS ORDERED: Nicotine Inhaler* 10 MG AMP INH PRN (21:42)
[2018-11-22] MEDS ORDERED: Tetan/Diph/Pertus SYR(Tdap)* 0.5 ML SYR(BOOSTRIX) use SYR IM ONE (22:07)
[2018-11-22 22:12] LABS: ABS Basophils 0 10^3/ul (0-0.2); ABS Eosinophils 0 10^3/ul (0-0.6); ABS Lymphocytes 1.3 10^3/ul (1.0-4.8); ABS Monocytes 0.9 10^3/ul (0-0.8); ABS Neutrophils 2.7 10^3/ul (1.5-7.7); ABS Nucleated RBC 0 10^3/ul; Eosinophil % 0.9 %; Hematocrit 42 % (35-47); Lymphocyte % 26.4 %; Mean Corpuscular HGB Conc 34 g/dl (31-36); Mean Corpuscular Hemoglobin 29 pg (27-31); Mean Corpuscular Volume 87 fL (80-97); Mean Platelet Volume 7.1 fL (7.4-10.4); Nucleated Red Blood Cells % 0.1; Platelet Count 289 10^3/ul (150-450); Red Blood Count 4.78 10^6/ul (4.00-5.40); Red Cell Distribution Width 15 % (10.5-15); White Blood Count 5.1 10^3/ul (3.5-10.8)
[2018-11-22 22:28] LABS: ALT 149 U/L (7-52); AST 89 U/L (13-39); Albumin 4.3 g/dL (3.2-5.2); Albumin/Globulin Ratio 1.3 (1-3); Alkaline Phosphatase 99 U/L (34-104); Anion Gap 7 mmol/L (2-11); BUN/Creatinine Ratio 9.5 (8-20); Blood Urea Nitrogen 7 mg/dL (6-24); CO2 Carbon Dioxide 27 mmol/L (22-32); Calcium 9.2 mg/dL (8.6-10.3); Chloride 108 mmol/L (101-111); EGFR African American 117.7 (>60); EGFR Non-African American 97.3 (>60); Globulin 3.2 g/dL (2-4); Glucose 94 mg/dL (70-100); Potassium 4.1 mmol/L (3.5-5.0); Sodium 142 mmol/L (135-145); Total Protein 7.5 g/dL (6.4-8.9)
[2018-11-22 22:33] LABS: Urine Appearance Clear; Urine Bacteria Absent (Absent); Urine Bilirubin Negative (Negative); Urine Blood 2+ (Negative); Urine Color Yellow; Urine Glucose Negative (Negative); Urine Ketones Negative (Negative); Urine Nitrite Negative (Negative); Urine Protein Negative (Negative); Urine Red Blood Cell Absent (Absent); Urine Specific Gravity 1.014 (1.010-1.030); Urine Squamous Epithelial Cell Present (Absent); Urine Urobilinogen Negative (Negative); Urine White Blood Cell Absent (Absent)
[2018-11-22 22:51] LABS: Barbiturates Urine Screen None Detected (None Detect); Benzodiazepine Urine Screen None Detected (None Detect); Urine Cannabinoids Screen None Detected (None Detect)
[2018-11-22 22:56] LABS: Acetaminophen < 15 mcg/mL; Alcohol 178 mg/dL (<10); Salicylate < 2.50 mg/dL (<30)
[2018-11-22 23:11] LABS: TSH (Thyroid Stimulating Horm) 0.97 mcIU/mL (0.34-5.60)
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
--- NOTE | 2018-11-23 03:32 | ED ---
Progress - Progress Note Progress Note: The patient was signed out by BISI Suero, to Dr. Hartman, awaiting psychiatric evaluation. - Consult/PCP Time Called: 20:50 Course/Dx - Course Course Of Treatment: The patient was signed out by BISI Suero, to Dr. Hartman , awaiting psychiatric evaluation. The patient will be admitted involuntarily, per Dr. Henderson. - Diagnoses Provider Diagnoses: Alcohol abuse Discharge - Sign-Out/Discharge Documenting (check all that apply): Patient Departure - admission, Receiving Sign-Out Receiving patient FROM: Wilver Jack Patient Received Moderate/Deep Sedation with Procedure: No - Discharge Plan Condition: Stable Disposition: ADMITTED TO [facility] Referrals: No Primary Care Phys,NOPCP [Primary Care Provider] - - Attestation Statements Document Initiated by Scribe: Yes Documenting Scribe: Janusz Smith Provider For Whom Scribe is Documenting (Include Credential): Albert Hartman MD Scribe Attestation: Janusz Shetty, aliceibed for Albert Hartman MD on 11/23/18 at 0534. Status of Scribe Document: Ready
[2018-11-23] MEDS: Sertraline* 25 MG TAB PO SCH (09:57)
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
[2018-11-23] MEDS ORDERED: Al Hydrox/Mg Hydrox/Simet LIQ* 30 ML UDC PO PRN (19:39)
[2018-11-23] MEDS: Divalproex ER TAB(*) 500 MG PO SCH (20:24)
[2018-11-24] MEDS: Sertraline* 25 MG TAB PO SCH (09:15)
--- NOTE | 2018-11-24 11:38 | PN ---
BSU: Group Therapy Note - Service Type Service Type: 08490 Group Psychotherapy - Cognitive Behavioral Group Therapy ( CBT):Patient was attentive and participatory in CBT programming this morning, and remained in good behavioral control. Patient expressed positive insights regarding relevant treatment interventions and goals.
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
[2018-11-24] MEDS: Nicotine PATCH 21 MG/24 HR* PATCH TRANSDERM SCH (14:48)
[2018-11-24] MEDS: Mouth Piece, Nicotine* 1 EACH CARTRIDGE INH SCH (14:48)
[2018-11-24] MEDS: Nicotine Inhaler* 10 MG AMP INH PRN (14:48)
[2018-11-24] MEDS: Benzocaine/Menthol LOZ* 1 LOZENGE MT PRN ×2 (17:55→20:44)
[2018-11-24] MEDS: guaiFENesin ER TAB 600 MG PO PRN (17:55)
[2018-11-24] MEDS: Divalproex ER TAB(*) 500 MG PO SCH (20:42)
[2018-11-24] MEDS: Acetaminophen TAB* 325 MG PO PRN (20:44)
[2018-11-24 21:05] LABS: HDL Cholesterol 56.1 mg/dL
[2018-11-24] MEDS: Nicotine Patch Removal NOTE FOLLOW UP SCH (21:17)
[2018-11-25] MEDS: Acetaminophen TAB* 325 MG PO PRN (02:20)
[2018-11-25] MEDS: Benzocaine/Menthol LOZ* 1 LOZENGE MT PRN ×2 (02:20→08:49)
[2018-11-25] MEDS: Sertraline* 25 MG TAB PO SCH (08:49)
[2018-11-25] MEDS: guaiFENesin ER TAB 600 MG PO PRN ×2 (08:50→20:46)
[2018-11-25] MEDS: Nicotine PATCH 21 MG/24 HR* PATCH TRANSDERM SCH (09:51)
[2018-11-25] MEDS: Nicotine Inhaler* 10 MG AMP INH PRN ×2 (09:51→17:50)
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
[2018-11-25] MEDS: Divalproex ER TAB(*) 500 MG PO SCH (20:45)
[2018-11-25] MEDS: Divalproex ER TAB(*) 250 MG PO SCH (20:45)
[2018-11-25] MEDS: Nicotine Patch Removal NOTE FOLLOW UP SCH (20:46)
[2018-11-26] MEDS: Benzocaine/Menthol LOZ* 1 LOZENGE MT PRN ×2 (00:29→09:03)
[2018-11-26] MEDS: Nicotine PATCH 21 MG/24 HR* PATCH TRANSDERM SCH (08:11)
[2018-11-26] MEDS: Sertraline* 25 MG TAB PO SCH (08:11)
[2018-11-26] MEDS: guaiFENesin ER TAB 600 MG PO PRN (09:02)
[2018-11-26] MEDS: Nicotine Inhaler* 10 MG AMP INH PRN ×3 (09:02→17:52)
[2018-11-26] MEDS: Acetaminophen TAB* 325 MG PO PRN (11:37)
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
--- NOTE | 2018-11-26 15:54 | PN ---
BSU: Group Therapy Note - Service Type Service Type: 01574 Group Psychotherapy - Medication Education Group: Patient was attentive and participatory in group, and remained in good behavioral control. Patient expressed positive insights regarding relevant treatment interventions. Patient stated understanding of material discussed and had appropriate questions.
[2018-11-26] MEDS: Nicotine Patch Removal NOTE FOLLOW UP SCH (20:49)
[2018-11-26] MEDS: Divalproex ER TAB(*) 500 MG PO SCH (20:49)
[2018-11-26] MEDS: Divalproex ER TAB(*) 250 MG PO SCH (20:49)
[2018-11-27] MEDS: Nicotine PATCH 21 MG/24 HR* PATCH TRANSDERM SCH (08:30)
[2018-11-27] MEDS: Nicotine Inhaler* 10 MG AMP INH PRN ×3 (08:31→17:20)
[2018-11-27] MEDS: Sertraline* 25 MG TAB PO SCH (08:31)
--- NOTE | 2018-11-27 11:37 | PN ---
BSU: Group Therapy Note - Service Type Service Type: 70016 Group Psychotherapy - Cognitive behavioral group note: Kisha was attentive and participatory in group programming this morning. She tends towards being somewhat hyperverbal at times, but responds to redirection and clarification of ideas presented. She relates well to peers, and is empathic in her interactions. Concerns remain about insight and judgement.
[2018-11-27] MEDS: Benzocaine/Menthol LOZ* 1 LOZENGE MT PRN (13:27)
[2018-11-27] MEDS: guaiFENesin ER TAB 600 MG PO PRN ×2 (13:27→20:45)
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
[2018-11-27] MEDS: Divalproex ER TAB(*) 500 MG PO SCH (20:45)
[2018-11-27] MEDS: Divalproex ER TAB(*) 250 MG PO SCH (20:45)
[2018-11-27] MEDS: Acetaminophen TAB* 325 MG PO PRN (20:45)
[2018-11-27] MEDS: Nicotine Patch Removal NOTE FOLLOW UP SCH (20:49)
[2018-11-28] MEDS: Nicotine Inhaler* 10 MG AMP INH PRN ×2 (00:01→21:27)
[2018-11-28] MEDS: guaiFENesin ER TAB 600 MG PO PRN ×2 (09:10→21:27)
[2018-11-28] MEDS: Sertraline* 25 MG TAB PO SCH (09:10)
[2018-11-28] MEDS: Nicotine PATCH 21 MG/24 HR* PATCH TRANSDERM SCH (09:10)
[2018-11-28] MEDS: Benzocaine/Menthol LOZ* 1 LOZENGE MT PRN ×2 (09:11→21:27)
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
[2018-11-28 21:15] LABS: Albumin 4.2 g/dL (3.2-5.2); Albumin/Globulin Ratio 1.4 (1-3); Globulin 2.9 g/dL (2-4); Indirect Bilirubin 0.3 mg/dL (0.3-1.0); Total Bilirubin 0.4 mg/dL (0.2-1.0); Total Protein 7.1 g/dL (6.4-8.9)
[2018-11-28] MEDS: Divalproex ER TAB(*) 500 MG PO SCH (21:26)
[2018-11-28] MEDS: Divalproex ER TAB(*) 250 MG PO SCH (21:26)
[2018-11-28] MEDS: Acetaminophen TAB* 325 MG PO PRN (21:27)
[2018-11-29] MEDS: Nicotine Patch Removal NOTE FOLLOW UP SCH ×2 (00:10→22:01)
[2018-11-29] MEDS: Sertraline* 25 MG TAB PO SCH (08:52)
[2018-11-29] MEDS: Nicotine Inhaler* 10 MG AMP INH PRN ×3 (08:53→21:53)
[2018-11-29] MEDS: guaiFENesin ER TAB 600 MG PO PRN ×2 (08:53→21:51)
[2018-11-29] MEDS: Benzocaine/Menthol LOZ* 1 LOZENGE MT PRN ×2 (08:53→21:55)
[2018-11-29] MEDS: Nicotine PATCH 21 MG/24 HR* PATCH TRANSDERM SCH (09:44)
[2018-11-29] MEDS: Divalproex ER TAB(*) 500 MG PO SCH (21:50)
[2018-11-29] MEDS: Divalproex ER TAB(*) 250 MG PO SCH (21:51)
[2018-11-29] MEDS: Acetaminophen TAB* 325 MG PO PRN (21:51)
[2018-11-30] MEDS: Nicotine PATCH 21 MG/24 HR* PATCH TRANSDERM SCH (09:08)
[2018-11-30] MEDS: Nicotine Inhaler* 10 MG AMP INH PRN ×3 (09:08→20:04)
[2018-11-30] MEDS: Sertraline* 25 MG TAB PO SCH (09:08)
[2018-11-30] MEDS: Divalproex ER TAB(*) 500 MG PO SCH (20:30)
[2018-11-30] MEDS: guaiFENesin ER TAB 600 MG PO PRN (20:57)
[2018-11-30] MEDS: Divalproex ER TAB(*) 250 MG PO SCH (20:57)
[2018-11-30] MEDS: Benzocaine/Menthol LOZ* 1 LOZENGE MT PRN (20:58)
[2018-11-30] MEDS: Nicotine Patch Removal NOTE FOLLOW UP SCH (22:25)
[2018-12-01] MEDS: Sertraline* 25 MG TAB PO SCH (08:41)
[2018-12-01] MEDS: Nicotine PATCH 21 MG/24 HR* PATCH TRANSDERM SCH (08:41)
[2018-12-01] MEDS: guaiFENesin ER TAB 600 MG PO PRN ×2 (08:43→20:48)
[2018-12-01] MEDS: Benzocaine/Menthol LOZ* 1 LOZENGE MT PRN ×2 (08:43→20:48)
[2018-12-01] MEDS: Nicotine Inhaler* 10 MG AMP INH PRN ×3 (08:44→20:46)
--- NOTE | 2018-12-01 13:13 | PN ---
BSU: Group Therapy Note - Service Type Service Type: 11554 Group Psychotherapy - Cognitive Behavioral Group Therapy ( CBT):Patient presented in CBT programming as disorganized and disruptive in discussion and needed repeated redirection to attend to presented materials.
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
[2018-12-01] MEDS: Nicotine Patch Removal NOTE FOLLOW UP SCH (20:42)
[2018-12-01] MEDS: Divalproex ER TAB(*) 250 MG PO SCH (20:47)
[2018-12-01] MEDS: Divalproex ER TAB(*) 500 MG PO SCH (20:47)
[2018-12-02] MEDS: Sertraline* 25 MG TAB PO SCH (09:03)
[2018-12-02] MEDS: Nicotine Inhaler* 10 MG AMP INH PRN ×3 (09:03→20:28)
[2018-12-02] MEDS: Nicotine PATCH 21 MG/24 HR* PATCH TRANSDERM SCH (10:48)
--- NOTE | 2018-12-02 11:13 | PN ---
BSU: Group Therapy Note - Service Type Service Type: 09891 Group Psychotherapy - Cognitive Behavioral Group Therapy ( CBT):Patient presented in CBT programming as disorganized and disruptive in discussion and needed repeated redirection to attend to presented materials.
[2018-12-02] MEDS: Divalproex ER TAB(*) 500 MG PO SCH (20:27)
[2018-12-02] MEDS: Divalproex ER TAB(*) 250 MG PO SCH (20:27)
[2018-12-02] MEDS: Nicotine Patch Removal NOTE FOLLOW UP SCH (22:00)
[2018-12-03] MEDS: Sertraline* 25 MG TAB PO SCH (08:34)
[2018-12-03] MEDS: Nicotine Inhaler* 10 MG AMP INH PRN ×3 (08:35→20:05)
[2018-12-03] MEDS: Nicotine PATCH 21 MG/24 HR* PATCH TRANSDERM SCH (08:35)
[2018-12-03 11:10] VITALS: BP 112/60
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
[2018-12-03] MEDS: Nicotine GUM* 2 MG PO PRN ×2 (12:08→20:05)
--- NOTE | 2018-12-03 15:41 | PN ---
BSU: Group Therapy Note - Service Type Service Type: [id number] Group Psychotherapy - Group Participation Patient Participating in Group: Yes Level of Group Participation: Attentive, Spontaneously Participate Relatedness to Group: Well Related - Kisha participated well. She was pleasant and offered good suggestions. She was on topic.
[2018-12-03] MEDS: Divalproex ER TAB(*) 500 MG PO SCH (20:04)
[2018-12-03] MEDS: Benzocaine/Menthol LOZ* 1 LOZENGE MT PRN (20:05)
[2018-12-03] MEDS: Divalproex ER TAB(*) 250 MG PO SCH (20:05)
[2018-12-03] MEDS: guaiFENesin ER TAB 600 MG PO PRN (20:05)
[2018-12-03] MEDS: Acetaminophen TAB* 325 MG PO PRN (20:05)
[2018-12-03] MEDS: Mouth Piece, Nicotine* 1 EACH CARTRIDGE INH SCH (20:05)
[2018-12-03] MEDS: Nicotine Patch Removal NOTE FOLLOW UP SCH (20:20)
[2018-12-04] MEDS: Sertraline* 25 MG TAB PO SCH (08:53)
[2018-12-04] MEDS: Nicotine Inhaler* 10 MG AMP INH PRN ×2 (08:53→13:26)
[2018-12-04] MEDS: Nicotine PATCH 21 MG/24 HR* PATCH TRANSDERM SCH (08:53)
[2018-12-04] MEDS: Nicotine GUM* 2 MG PO PRN (10:09)
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
== END 2018-12-04 14:00 | disposition home or self-care (01) | DRG 753 ==
LOC: ED 21:14 → BSU 11-23 06:08
PROVIDERS: ADMIT Psychiatry & Neurology Psychiatry; ATTEND Psychiatry & Neurology Psychiatry
PROC: GZHZZZZ Group Psychotherapy (ICD-10-PCS; principal; 2018-11-23)
DX: F31.9 Bipolar disorder, unspecified (principal); F17.200 Nicotine dependence, unspecified, uncomplicated; R41.83 Borderline intellectual functioning; F63.9 Impulse disorder, unspecified; F10.10 Alcohol abuse, uncomplicated; Y90.9 Presence of alcohol in blood, level not specified; F41.9 Anxiety disorder, unspecified; F43.10 Post-traumatic stress disorder, unspecified; F81.9 Developmental disorder of scholastic skills, unspecified; R40.2412 Glasgow coma scale score 13-15, at arrival to emergency department; S81.011A Laceration without foreign body, right knee, initial encounter; S61.213A Laceration without foreign body of left middle finger without damage to nail, initial encounter; X78.1XXA Intentional self-harm by knife, initial encounter; Y92.9 Unspecified place or not applicable; Z91.410 Personal history of adult physical and sexual abuse
CPT/HCPCS: 36415; 80053; 80061; 80076; 80164; 80307; 80320; 80329; 81003; 81015; 83036; 84443; 85025; 90715; 90853; 99222; 99231; 99232; 99238; 99285; A9270-GY; G0480

== ENCOUNTER 2018-12-22 17:02 | Emergency (ER) | payer OTHER ==
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
[2018-12-22 19:59] VITALS: BP 129/75
== END 2018-12-22 19:57 | disposition home or self-care (01) ==
LOC: ED 17:02
DX: M79.601 Pain in right arm (principal); R93.7 Abnormal findings on diagnostic imaging of other parts of musculoskeletal system; J45.909 Unspecified asthma, uncomplicated; F41.9 Anxiety disorder, unspecified; F31.9 Bipolar disorder, unspecified; F90.9 Attention-deficit hyperactivity disorder, unspecified type; Z88.3 Allergy status to other anti-infective agents; Z88.2 Allergy status to sulfonamides; Z91.040 Latex allergy status; Z91.5 Personal history of self-harm
CPT/HCPCS: 99282

== ENCOUNTER 2019-03-11 14:45 | Emergency (ER) | payer OTHER ==
[2019-03-11 14:54] VITALS: BP 115/59
--- NOTE | 2019-03-11 15:48 | UC ---
Abdominal Pain Female HPI - HPI Summary HPI Summary: 23 yo female presents here requesting a pregnacy test n/v every AM x 3 or 4 days no abd pain - History of Current Complaint Chief Complaint: UCGU Stated Complaint: WANTS PREG TEST Time Seen by Provider: 03/11/19 15:34 Hx Obtained From: Patient Hx Last Menstrual Period: unknown Onset/Duration: Gradual Onset Severity Initially: Mild Severity Currently: None Pain Intensity: 0 Pain Scale Used: 0-10 Numeric Aggravating Factor(s): Nothing Alleviating Factor(s): Nothing Associated Signs and Symptoms: Positive: Nausea, Vomiting - Risk Factors Ectopic Risk Factor: Negative Allergies/Adverse Reactions: Allergies Allergy/AdvReac Type Severity Reaction Status Date / Time amoxicillin Allergy Nausea And Verified 03/11/19 14:54 Vomiting erythromycin base Allergy Nausea And Verified 03/11/19 14:54 Vomiting latex Allergy Rash Verified 03/11/19 14:54 Penicillins Allergy Nausea And Verified 03/11/19 14:54 Vomiting Sulfa (Sulfonamide Allergy Nausea And Verified 03/11/19 14:54 Antibiotics) Vomiting seafood Allergy Anaphylatic Uncoded 03/11/19 14:54 Shock Home Medications: Home Medications Quetiapine Fumarate [Seroquel 50 mg tab] 50 mg PO 03/11/19 [History] Sertraline HCl [Zoloft] 25 mg PO 03/11/19 [History] PMH/Surg Hx/FS Hx/Imm Hx Previously Healthy: Yes - Surgical History Surgical History: Yes - Family History Known Family History: Negative: Cardiac Disease, Hypertension, Diabetes - Social History Alcohol Use: None Alcohol Amount: none that pt reports Substance Use Type: None Substance Use Comment - Amount & Last Used: none that pt reports, pt tox negative for substances Smoking Status (MU): Unknown if Ever Smoked Type: Smokeless Tobacco Have You Smoked in the Last Year: No Household Exposure Type: Cigarettes - Immunization History Most Recent Influenza Vaccination: 10/17/18 Most Recent Tetanus Shot: unk Most Recent Pneumonia Vaccination: never Review of Systems All Other Systems Reviewed And Are Negative: Yes Constitutional: Positive: Negative Skin: Positive: Negative Eyes: Positive: Negative ENT: Positive: Negative Respiratory: Positive: Negative Cardiovascular: Positive: Negative Gastrointestinal: Positive: Vomiting - q am x 3-4 days Genitourinary: Positive: Negative Motor: Positive: Negative Musculoskeletal: Positive: Negative Neurological: Positive: Negative Psychological: Positive: Negative Physical Exam Triage Information Reviewed: Yes Appearance: Well-Appearing, No Pain Distress, Well-Nourished Vital Signs: Initial Vital Signs Temp 98.0 F 03/11/19 14:48 Pulse 93 03/11/19 14:48 Resp 18 03/11/19 14:48 BP 115/59 03/11/19 14:48 Pulse Ox 100 03/11/19 14:48 Vital Signs Reviewed: Yes Eyes: Positive: Conjunctiva Clear ENT: Positive: Hearing grossly normal. Negative: Nasal congestion, Nasal drainage, Trismus, Muffled voice, Hoarse voice Neck: Positive: Supple, Nontender Respiratory: Positive: Lungs clear, Normal breath sounds, No respiratory distress, No accessory muscle use Cardiovascular: Positive: RRR, No Murmur Abdomen Description: Positive: Nontender, No Organomegaly, Soft Bowel Sounds: Positive: Present Musculoskeletal: Positive: ROM Intact, No Edema Neurological Exam: Normal Psychological Exam: Normal Skin Exam: Normal Diagnostics - Laboratory Lab Results: U HCG (-) Abd Pain Female Course/Dx - Differential Dx/Diagnosis Provider Diagnosis: Acute vomiting Discharge - Sign-Out/Discharge Documenting (check all that apply): Patient Departure All imaging exams completed and their final reports reviewed: No Studies - Discharge Plan Condition: Stable Disposition: HOME Patient Education Materials: Acute Nausea and Vomiting (ED) Referrals: [facility] [place] [place] PH[facility]IAN REFERRAL [Outside] - As Soon As Possible Additional Instructions: urine test (-) serum test pending - Billing Disposition and Condition Condition: STABLE Disposition: Home
--- NOTE | 2019-03-12 07:16 | UC ---
- Progress Note Progress Note: Serum test also confirms that you are not . If you are still having symptoms recommend follow up with your PCP or return to urgent care. Course/Dx - Diagnoses Provider Diagnoses: Acute vomiting Discharge - Sign-Out/Discharge Documenting (check all that apply): Post-Discharge Follow Up All imaging exams completed and their final reports reviewed: No Studies - Discharge Plan Condition: Stable Disposition: HOME Patient Education Materials: Acute Nausea and Vomiting (ED) Referrals: [facility] [place] [facility] REFERR[facility] [Outside] - As Soon As Possible Additional Instructions: urine test (-) serum test pending - Billing Disposition and Condition Condition: STABLE Disposition: Home
== END 2019-03-11 16:02 | disposition home or self-care (01) ==
LOC: UCEAST 14:45
DX: R11.10 Vomiting, unspecified (principal); Z32.02 Encounter for pregnancy test, result negative
CPT/HCPCS: 36415; 84702; 99211; G0463

== ENCOUNTER 2019-06-02 15:46 | Emergency (ER) | payer MEDICAID, OTHER ==
[2019-06-02 15:56] VITALS: BP 119/69
--- OUTSIDE RECORDS SUMMARY | 2019-06-02 15:57 | XMS REPORT | Continuity of Care Document ---
:1995 External Reference #:[id number] Author Name Geena Carrizales DO (transmitted by agent of provider Selam Reed) Address [address] [place] [id number] Care Team Providers Name Role Phone Geena Carrizales DO - Hospitalist Care Team Information Construction Executive [phone] Problems Description No Information Available Social History Type Date Description Comments Sex Unknown Tobacco Use Start: Unknown chews tobacco Tobacco Use Reviewed: 09/16/99 Current Every Day user of smokeless tabacco Smoking Status Reviewed: 05/29/19 Current Every Day user of smokeless tabacco Allergies, Adverse Reactions, Alerts Active Allergies Reaction Severity Comments Date Sulfa Antibiotics Difficulty breathing Severe 05/29/2019 Penicillin G Difficulty breathing Severe 05/29/2019 Shellfish-Derived Products Difficulty breathing Severe 05/29/2019 Medications Active Medications SIG Qnty Indications Ordering Provider Date 19 Unknown Tablets History Medications No Active Medications Unknown 05/29/2019 - 05/29/2019 Immunizations Description No Information Available Vital Signs Date Vital Result Comment 05/29/2019 10:27am Height 61 inches 5'1" Weight 150.00 lb with shoes Heart Rate 86 /min BP Systolic 114 mmHg left arm sitting BP Diastolic 71 mmHg left arm sitting Body Temperature 96.8 F O2 % BldC Oximetry 99 % BMI (Body Mass Index) 28.3 kg/m2 Results Description No Information Available Procedures Description No Information Available Medical Devices Description No Information Available Encounters Description No Information Available Assessments Date Code Description Provider 05/29/2019 Z00.00 Encounter for general adult medical examination Geena Carrizales DO without abnormal findings Plan of Treatment No Information Available Functional Status Description No Information Available Mental Status Description No Information Available Referrals Description No Information Available
[2019-06-02 16:10] LABS: ABS Basophils 0.2 10^3/ul (0-0.2); ABS Eosinophils 0.4 10^3/ul (0-0.6); ABS Lymphocytes 1.5 10^3/ul (1.0-4.8); ABS Monocytes 0.9 10^3/ul (0-0.8); ABS Neutrophils 7.9 10^3/ul (1.5-7.7); Eosinophil % 3.3 %; Hematocrit 39 % (35-47); Hemoglobin 13.4 g/dL (12.0-16.0); Lymphocyte % 13.6 %; Mean Corpuscular HGB Conc 35 g/dL (31-36); Mean Corpuscular Hemoglobin 31 pg (27-31); Mean Corpuscular Volume 88 fL (80-97); Mean Platelet Volume 7.3 fL (7.4-10.4); Platelet Count 357 10^3/uL (150-450); Red Blood Count 4.37 10^6 /uL (3.70-4.87); Red Cell Distribution Width 14 % (10-15); White Blood Count 10.9 10^3/uL (3.5-10.8)
[2019-06-02 16:14] LABS: INR 1.09 (0.82-1.09)
[2019-06-02 16:28] LABS: ALT 20 U/L (7-52); AST 17 U/L (13-39); Albumin 4.3 g/dL (3.2-5.2); Albumin/Globulin Ratio 1.4 (1-3); Alkaline Phosphatase 75 U/L (34-104); Anion Gap 4 mmol/L (2-11); BUN/Creatinine Ratio 9.9 (8-20); Blood Urea Nitrogen 9 mg/dL (6-24); CO2 Carbon Dioxide 29 mmol/L (22-32); Calcium 9.5 mg/dL (8.6-10.3); Chloride 106 mmol/L (101-111); EGFR African American 92.7 (>60); EGFR Non-African American 76.6 (>60); Globulin 3.1 g/dL (2-4); Glucose 87 mg/dL (70-100); Potassium 4.1 mmol/L (3.5-5.0); Sodium 139 mmol/L (135-145); Total Protein 7.4 g/dL (6.4-8.9)
[2019-06-02 17:15] LABS: HCG Pregnancy < 0.60 mIU/mL
== END 2019-06-02 17:55 | disposition left against medical advice (07) ==
LOC: ED 15:46
DX: Z53.21 Procedure and treatment not carried out due to patient leaving prior to being seen by health care provider (principal); R07.9 Chest pain, unspecified; Z79.899 Other long term (current) drug therapy; Z88.0 Allergy status to penicillin; Z88.1 Allergy status to other antibiotic agents; Z91.040 Latex allergy status
CPT/HCPCS: 36415; 80053; 84484; 84702; 85025; 85610; 93005; 99281

== ENCOUNTER 2019-07-13 17:20 | Emergency (ER) | payer MEDICAID ==
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
[2019-07-13 20:52] LABS: ABS Basophils 0.1 10^3/ul (0-0.2); ABS Lymphocytes 2.3 10^3/ul (1.0-4.8); ABS Monocytes 1.1 10^3/ul (0-0.8); Eosinophil % 0.1 %; Hematocrit 44 % (35-47); Hemoglobin 14.8 g/dL (12.0-16.0); Lymphocyte % 22.5 %; Mean Corpuscular HGB Conc 33 g/dL (31-36); Mean Corpuscular Hemoglobin 30 pg (27-31); Mean Corpuscular Volume 88 fL (80-97); Mean Platelet Volume 7.3 fL (7.4-10.4); Nucleated Red Blood Cells % 0.1; Platelet Count 352 10^3/uL (150-450); Red Blood Count 5.02 10^6 /uL (3.70-4.87); Red Cell Distribution Width 14 % (10-15); White Blood Count 10.4 10^3/uL (3.5-10.8)
[2019-07-13 21:11] LABS: Albumin/Globulin Ratio 1.4 (1-3); BUN/Creatinine Ratio 8.2 (8-20); Calcium 10.7 mg/dL (8.6-10.3); EGFR African American 84.4 (>60); EGFR Non-African American 69.7 (>60); Globulin 3.6 g/dL (2-4); Potassium 3.3 mmol/L (3.5-5.0); Total Bilirubin 0.8 mg/dL (0.2-1.0); Total Protein 8.6 g/dL (6.4-8.9)
[2019-07-13 21:28] LABS: Urine Appearance Turbid; Urine Bacteria Absent (Absent); Urine Bilirubin Negative (Negative); Urine Blood 2+ (Negative); Urine Color Amber; Urine Glucose Negative (Negative); Urine Ketones Negative (Negative); Urine Nitrite Negative (Negative); Urine Protein Negative (Negative); Urine Red Blood Cell 3+(>10/hpf) (Absent); Urine Squamous Epithelial Cell Present (Absent); Urine Urobilinogen Negative (Negative); Urine White Blood Cell 2+(11-20/hpf) (Absent)
[2019-07-13 21:51] VITALS: BP 140/82
== END 2019-07-13 21:50 | disposition home or self-care (01) ==
LOC: ED 17:20
DX: K62.5 Hemorrhage of anus and rectum (principal); N91.2 Amenorrhea, unspecified; F90.9 Attention-deficit hyperactivity disorder, unspecified type; F32.9 Major depressive disorder, single episode, unspecified; F43.10 Post-traumatic stress disorder, unspecified; Z88.0 Allergy status to penicillin; Z88.2 Allergy status to sulfonamides; Z88.1 Allergy status to other antibiotic agents; Z91.040 Latex allergy status
CPT/HCPCS: 36415; 80053; 81003; 81015; 84702; 85025; 87086; 99282

== ENCOUNTER 2020-07-04 22:21 | Inpatient (IN) ==
[2020-07-05] MEDS ORDERED: Buffered Lidocaine 1% SYRIN 1 ml INTRADERM ONE (00:28)
[2020-07-05] MEDS ORDERED: Lactated Ringers 1000 ml BAG 1,000 ML IV ONE (00:28)
[2020-07-05] MEDS ORDERED: Lactated Ringers 1000 ml BAG 1,000 ML IV SCH (01:00)
[2020-07-05 01:14] LABS: Urine Appearance Cloudy; Urine Bilirubin Negative (Negative); Urine Blood 2+ (Negative); Urine Color Amber; Urine Glucose Negative (Negative); Urine Ketones Negative (Negative); Urine Nitrite Negative (Negative); Urine Protein 2+(100 mg/dL) (Negative); Urine Specific Gravity 1.034 (1.010-1.030); Urine Urobilinogen Positive (Negative)
[2020-07-05 01:34] LABS: Urine Bacteria Absent (Absent); Urine Red Blood Cell 3+(>10/hpf) (Absent); Urine Squamous Epithelial Cell Present (Absent); Urine White Blood Cell 1+(6-10/hpf) (Absent)
[2020-07-05] MEDS ORDERED: Oxytocin in LR 20 UNITS/1,000 ML BAG IVPB SCH (05:00)
[2020-07-05 05:27] LABS: ABS Basophils 0.1 10^3/ul (0-0.2); ABS Eosinophils 0.1 10^3/ul (0-0.6); ABS Lymphocytes 2.3 10^3/ul (1.0-4.8); ABS Monocytes 1.4 10^3/ul (0-0.8); ABS Neutrophils 7.2 10^3/ul (1.5-7.7); Eosinophil % 0.6 %; Hematocrit 38 % (35-47); Hemoglobin 12.6 g/dL (12.0-16.0); Mean Corpuscular HGB Conc 33 g/dL (31-36); Mean Corpuscular Hemoglobin 29 pg (27-31); Mean Corpuscular Volume 88 fL (80-97); Mean Platelet Volume 9.3 fL (7.4-10.4); Nucleated Red Blood Cells % 0.1; Platelet Count 267 10^3/uL (150-450); Red Blood Count 4.34 10^6 /uL (3.70-4.87); Red Cell Distribution Width 14 % (10-15); White Blood Count 11.1 10^3/uL (3.5-10.8)
[2020-07-05] MEDS ORDERED: Dibucaine 1% OINT 28.35 GM TUBE PR PRN (08:36)
[2020-07-05] MEDS ORDERED: Glycerin ADULT 2.4 gm SUPP PR PRN (08:36)
[2020-07-05] MEDS ORDERED: Witch Hazel PAD JAR TOPICAL PRN (08:36)
[2020-07-05] MEDS ORDERED: Ondansetron 4 mg VIAL 2 MG/ML 2 ml VIAL IV PRN (10:06)
[2020-07-05] MEDS ORDERED: Ondansetron ODT 4 mg TAB 4 MG TAB ONE (10:06)
[2020-07-05] MEDS ORDERED: Ondansetron 4 mg VIAL 2 MG/ML 2 ml VIAL ONE (10:09)
[2020-07-05 17:24] LABS: Urine Benzodiazepine Screen None Detected (None Detect); Urine Cannabinoids Screen None Detected (None Detect); Urine Opiates Screen None Detected (None Detect)
[2020-07-06 09:03] LABS: ABS Basophils 0.1 10^3/ul (0-0.2); ABS Eosinophils 0.2 10^3/ul (0-0.6); ABS Lymphocytes 3.2 10^3/ul (1.0-4.8); ABS Monocytes 1.2 10^3/ul (0-0.8); ABS Neutrophils 6.9 10^3/ul (1.5-7.7); Eosinophil % 1.7 %; Hematocrit 38 % (35-47); Hemoglobin 12.4 g/dL (12.0-16.0); Lymphocyte % 27.7 %; Mean Corpuscular HGB Conc 33 g/dL (31-36); Mean Corpuscular Hemoglobin 29 pg (27-31); Mean Corpuscular Volume 89 fL (80-97); Mean Platelet Volume 9.2 fL (7.4-10.4); Platelet Count 283 10^3/uL (150-450); Red Blood Count 4.27 10^6 /uL (3.70-4.87); Red Cell Distribution Width 14 % (10-15); White Blood Count 11.7 10^3/uL (3.5-10.8)
[2020-07-07 09:06] VITALS: BP 145/82
== END 2020-07-07 17:10 | disposition home or self-care (01) | DRG 560 ==
LOC: MCHOBOUT 22:21 → MCHOB 23:37
PROVIDERS: ADMIT Midwife; ATTEND Midwife

== ENCOUNTER 2022-06-29 11:58 | Inpatient (IN) ==
[2022-06-29] MEDS ORDERED: Nalbuphine 10 MG/ML 1 ML VIAL IV PRN (12:27)
[2022-06-29] MEDS ORDERED: Lactated Ringers 1000 ml BAG 1,000 ML IV ONE (12:27)
[2022-06-29] MEDS ORDERED: Buffered Lidocaine 1% SYRIN 1 ml INTRADERM ONE (12:27)
[2022-06-29] MEDS ORDERED: Promethazine INJ(RESTRICTED) 25 MG/ML 1 ml VIAL IV PRN (12:27)
[2022-06-29] MEDS ORDERED: Vancomycin 1,000 MG in NS 0.9% 250 ml 250 ML IVPB SCH (13:00)
[2022-06-29] MEDS ORDERED: Betamethasone 6 mg/ml 5 ml VIAL IM SCH (13:00)
[2022-06-29] MEDS ORDERED: Lactated Ringers 1000 ml BAG 1,000 ML IV SCH ×2 (13:00)
[2022-06-29 13:01] LABS: ABS Basophils 0.1 10^3/ul (0-0.2); ABS Eosinophils 0.1 10^3/ul (0-0.6); ABS Lymphocytes 1.8 10^3/ul (1.0-4.8); ABS Monocytes 1.1 10^3/ul (0-0.8); ABS Neutrophils 6.5 10^3/ul (1.5-7.7); Eosinophil % 0.8 %; Hematocrit 40 % (35-47); Hemoglobin 13.2 g/dL (12.0-16.0); Lymphocyte % 19.1 %; Mean Corpuscular HGB Conc 33 g/dL (31-36); Mean Corpuscular Hemoglobin 28 pg (27-31); Mean Corpuscular Volume 86 fL (80-97); Mean Platelet Volume 9.7 fL (7.4-10.4); Nucleated Red Blood Cells % 0.1; Platelet Count 245 10^3/uL (150-450); Red Blood Count 4.69 10^6 /uL (3.70-4.87); Red Cell Distribution Width 14 % (10-15); White Blood Count 9.5 10^3/uL (3.5-10.8)
[2022-06-29 13:23] LABS: Urine Benzodiazepine Screen None Detected (None Detect); Urine Cannabinoids Screen None Detected (None Detect); Urine Opiates Screen None Detected (None Detect)
[2022-06-29 13:25] LABS: Urine Appearance Clear; Urine Bilirubin Negative (Negative); Urine Blood Negative (Negative); Urine Color Yellow; Urine Glucose Negative (Negative); Urine Ketones Negative (Negative); Urine Nitrite Negative (Negative); Urine Protein Negative (Negative); Urine Specific Gravity 1.012 (1.002-1.030); Urine Urobilinogen Negative (Negative)
[2022-06-29 13:30] LABS: ALT 24 U/L (7-52); AST 24 U/L (13-39); Albumin 3.3 g/dL (3.2-5.2); Albumin/Globulin Ratio 0.9 (1-3); Alkaline Phosphatase 291 U/L (35-149); Anion Gap 10 mmol/L (2-11); Blood Urea Nitrogen 16 mg/dL (6-24); CO2 Carbon Dioxide 23 mmol/L (22-32); Calcium 8.9 mg/dL (8.6-10.3); Chloride 104 mmol/L (101-111); Globulin 3.5 g/dL (2-4); Glucose 71 mg/dL (70-100); Potassium 4.2 mmol/L (3.5-5.0); Sodium 137 mmol/L (135-145); Total Protein 6.8 g/dL (6.4-8.9); eGFR CKD-EPI 91.1 (>60)
[2022-06-29 13:54] LABS: Rubella Screen IgG Immune (Immune)
[2022-06-29 13:55] LABS: HIV 4th Generation Nonreactive (Nonreactive)
[2022-06-29] MEDS ORDERED: Dibucaine 1% OINT 28.35 GM TUBE PR PRN (14:11)
[2022-06-29] MEDS ORDERED: Witch Hazel PAD JAR TOPICAL PRN (14:11)
[2022-06-29] MEDS ORDERED: Glycerin ADULT 2.4 gm SUPP PR PRN (14:11)
[2022-06-29 14:12] LABS: Hepatitis B Surface Antigen Nonreactive (Nonreactive)
[2022-06-29 14:35] LABS: Hepatitis C Antibody Reactive (Negative)
[2022-06-30 09:22] LABS: ABS Basophils 0.1 10^3/ul (0-0.2); ABS Eosinophils 0.1 10^3/ul (0-0.6); ABS Lymphocytes 2.1 10^3/ul (1.0-4.8); ABS Monocytes 1.1 10^3/ul (0-0.8); ABS Neutrophils 10.9 10^3/ul (1.5-7.7); Eosinophil % 0.5 %; Hematocrit 40 % (35-47); Hemoglobin 13.2 g/dL (12.0-16.0); Mean Corpuscular HGB Conc 34 g/dL (31-36); Mean Corpuscular Hemoglobin 29 pg (27-31); Mean Corpuscular Volume 87 fL (80-97); Platelet Count 254 10^3/uL (150-450); Red Blood Count 4.56 10^6 /uL (3.70-4.87); Red Cell Distribution Width 14 % (10-15); White Blood Count 14.3 10^3/uL (3.5-10.8)
[2022-06-30] MEDS ORDERED: medroxyPROGESTERone ACETATE 150 MG/ML VIAL IM ONE (12:51)
[2022-07-01 07:52] VITALS: BP 120/60
[2022-07-01] MEDS ORDERED: Tetan/Diph/Pertus SYR(Tdap) 0.5 ML SYR(BOOSTRIX) use SYR contains LATEX IM ONE (13:34)
[2022-07-01] MEDS ORDERED: Influenza vaccine *QUAD* *2022-23* 0.5 ML SYRINGE IM ONE (13:34)
[2022-07-01] MEDS ORDERED: Varicella Virus Vaccine Live 0.5 ML VIAL SUBCUT ONE (13:34)
== END 2022-07-01 16:56 | disposition home or self-care (01) | DRG 560 ==
LOC: MCHOBOUT 11:58 → MCHOB 12:31
PROVIDERS: ADMIT Obstetrics & Gynecology; ATTEND Obstetrics & Gynecology